=== PATIENT | male | born 1970 | race Caucasian/White ===

== ENCOUNTER 2024-02-11 08:32 | Day surgery (SDC) | payer OTHER, SELFPAY ==
[2024-02-11 12:48] VITALS: BMI 30.9
[2024-02-11 12:59] VITALS: BMI 30.9
[2024-02-11 13:04] VITALS: BP 145/87
[2024-02-11 14:40] VITALS: BP 131/82
[2024-02-11 14:55] VITALS: BP 133/85
[2024-02-11 15:00] VITALS: BP 121/95
[2024-02-11 15:05] VITALS: BP 121/95
== END 2024-02-11 15:16 | disposition home or self-care (01) ==
LOC: SDS 08:32
PROVIDERS: ATTENDING PHYSICIAN Surgery
DX: Z08 Encounter for follow-up examination after completed treatment for malignant neoplasm (principal); Z85.048 Personal history of other malignant neoplasm of rectum, rectosigmoid junction, and anus; K57.30 Diverticulosis of large intestine without perforation or abscess without bleeding; K62.89 Other specified diseases of anus and rectum
CPT/HCPCS: 45330

== ENCOUNTER 2024-11-24 06:13 | Day surgery (SDC) | payer OTHER, SELFPAY ==
[2024-11-24 12:19] VITALS: BMI 28.9
[2024-11-24 12:20] VITALS: BMI 28.9
[2024-11-24 12:21] VITALS: BP 151/90
[2024-11-24 13:39] VITALS: BP 107/83
[2024-11-24 13:46] VITALS: BP 113/85
[2024-11-24 14:00] VITALS: BP 124/90
== END 2024-11-24 14:10 | disposition home or self-care (01) ==
LOC: SDS 06:13
PROVIDERS: ATTENDING PHYSICIAN Surgery
DX: Z12.11 Encounter for screening for malignant neoplasm of colon (principal); K62.89 Other specified diseases of anus and rectum; Z85.048 Personal history of other malignant neoplasm of rectum, rectosigmoid junction, and anus
CPT/HCPCS: 45330

== ENCOUNTER 2025-07-13 06:38 | Day surgery (SDC) | payer OTHER, SELFPAY | END 2025-07-13 12:05 | disposition home or self-care (01) | LOC: GI 06:38 | PROVIDERS: ATTENDING PHYSICIAN Surgery | DX: Z12.11 Encounter for screening for malignant neoplasm of colon (principal); K57.30 Diverticulosis of large intestine without perforation or abscess without bleeding; D12.3 Benign neoplasm of transverse colon; K62.89 Other specified diseases of anus and rectum; Z85.048 Personal history of other malignant neoplasm of rectum, rectosigmoid junction, and anus | CPT/HCPCS: 45380; 88305 ==